=== PATIENT | male | born 1965 | race Caucasian/White ===

== ENCOUNTER 2017-06-21 05:47 | Day surgery (SDC) | payer MEDICAID ==
[~2017-06-21] VITALS: Ht 190.5 cm; Wt 101.2 kg
[~2017-06-21 05:47] MED LIST: ALPR0.5T PO; DIPH25CA83 PO
[2017-06-21] MEDS ORDERED: LACTATED RINGERS 1,000 ML IV SCH (06:40)
[2017-06-21] MEDS ORDERED: BUPIVACAINE HCL/PF 0.5% (5MG/ML) 10ML ONE (07:37)
[2017-06-21] MEDS ORDERED: MIDAZOLAM HCL 2 MG/2 ML VIAL ONE (07:42)
[2017-06-21] MEDS ORDERED: LIDOCAINE HCL 1% 20ML VIAL (Pyxis) INJ ONE (07:45)
[2017-06-21] MEDS ORDERED: PROPOFOL 200MG/20ML VIAL IV ONE (07:45)
[2017-06-21] MEDS ORDERED: CEFAZOLIN SODIUM 1000MG/VIAL ONE (08:02)
[2017-06-21] MEDS ORDERED: FENTANYL CITRATE/PF 50MCG/ML 2ML VIAL ONE (08:09)
[2017-06-21] MEDS ORDERED: DEXAMETHASONE 4MG/ML 1ML VIAL ONE (08:22)
[2017-06-21] MEDS ORDERED: ONDANSETRON HCL 4MG/2ML VIAL ONE (09:01)
[2017-06-21] MEDS ORDERED: GLYCOPYRROLATE 0.2 MG/ML 2ML VIAL ONE (09:03)
[2017-06-21] MEDS ORDERED: NEOSTIGMINE METHYLSULFATE 1MG/ML 10 ML VIAL ONE (09:03)
[2017-06-21] MEDS ORDERED: ONDANSETRON HCL 4MG/2ML VIAL IV PRN (10:30)
[2017-06-21] MEDS ORDERED: SODIUM CHLORIDE 0.9% 1,000 ML IV SCH (10:30)
== END 2017-06-21 10:45 | disposition home or self-care (01) ==
LOC: OR 05:47
PROVIDERS: ATTEND Urology
DX: N43.2 Other hydrocele (principal); N40.0 Benign prostatic hyperplasia without lower urinary tract symptoms; E66.3 Overweight; Z79.899 Other long term (current) drug therapy
CPT/HCPCS: 55060; 88302; J0690; J1100; J2250; J2405; J2710; J3010; J3490; J7120; J2704

== ENCOUNTER 2019-04-01 12:45 | Emergency (ER) | payer MEDICAID ==
[~2019-04-01] VITALS: Ht 190.5 cm; Wt 100.0 kg
[2019-04-01] MEDS ORDERED: SODIUM CHLORIDE 0.9% 1,000 ML IV ONE (13:30)
[2019-04-01] MEDS ORDERED: ASPIRIN 81MG TABLET PO ONE (13:30)
[2019-04-01] MEDS ORDERED: LORAZEPAM 2MG/ML CPJ IV ONE (13:30)
[2019-04-01 13:34] LABS: BASOPHILS % 0.7 % (0.0-2.0); EOSINOPHILS % 0.2 % (0.0-5.0); HEMATOCRIT. 41.8 % (42.0-52.0); HEMOGLOBIN. 14.8 g/dL (14.0-18.0); LYMPHOCYTES % 18.4 % (20.0-50.0); MEAN CORPUSCULAR HEMOGLOBIN 35.9 pg (28.0-32.0); MEAN CORPUSCULAR VOLUME 101.4 fL (80.0-94.0); MEAN PLATELET VOLUME 7.5 fl (7.4-10.4); MONOCYTES % 11.5 % (2.0-8.0); NEUTROPHILS % 69.2 % (40.0-76.0); PLATELET 134 x1000/uL (130-400); RED BLOOD CELL COUNT 4.12 mill/uL (4.7-6.1); RED CELL DISTRIBUTION WIDTH 13.4 % (11.6-14.6)
[2019-04-01 13:39] LABS: CHLORIDE 99 mEq/L (98-107)
[2019-04-01 13:40] LABS: PROTHROMBIN TIME 10.5 sec (9.6-11.0)
[2019-04-01 19:00] LABS: ETHANOL BLOOD 40 mg/dL
[2019-04-01] MEDS ORDERED: ONDANSETRON 4MG ODT PO ONE (22:45)
[2019-04-01 22:52] LABS: CLARITY URINE TURBID (CLEAR); COLOR URINE ORANGE (YELLOW); KETONES URINE TRACE (NEGATIVE); LEUKOCYTE ESTERASE URINE NEGATIVE (NEGATIVE); NITRITE URINE NEGATIVE (NEGATIVE); OCCULT BLOOD URINE NEGATIVE (NEGATIVE); PH URINE >=9.0 (4.5-8.0); PROTEIN URINE TRACE (NEGATIVE); SPECIFIC GRAVITY URINE 1.018 (1.005-1.030)
[2019-04-01 23:00] LABS: *BARBITURATES SCREEN URINE NEGATIVE (NEGATIVE); *BENZODIAZEPINES SCREEN URINE NEGATIVE (NEGATIVE)
[2019-04-01 23:01] LABS: *AMPHETAMINES SCREEN URINE NEGATIVE (NEGATIVE); *COCAINE SCREEN URINE PRESUMTIVE POSITIVE (NEGATIVE); CANNABINOID URINE SCREEN PRESUMTIVE POSITIVE (NEGATIVE); METHADONE URINE SCREEN NEGATIVE (NEGATIVE); OPIATES URINE SCREEN NEGATIVE (NEGATIVE); PHENCYCLIDINE URINE SCREEN NEGATIVE (NEGATIVE)
[2019-04-02 11:10] VITALS: BP 137/92
== END 2019-04-02 11:21 | disposition home or self-care (01) ==
LOC: ER 13:46
DX: F41.0 Panic disorder [episodic paroxysmal anxiety] (principal); R45.851 Suicidal ideations; R74.0 Nonspecific elevation of levels of transaminase and lactic acid dehydrogenase [LDH]; R00.0 Tachycardia, unspecified; R03.0 Elevated blood-pressure reading, without diagnosis of hypertension
CPT/HCPCS: 36415; 71045; 80053; 80305; 80307; 80320; 80329; 81003; 83880; 84484; 85025; 85610; 93005; 96374; 99284; J2060; J7030; Q0162; G0480